=== PATIENT | female | born 1995 | race Two or more races ===

== ENCOUNTER 2021-03-28 14:37 | Inpatient (IN) | payer OTHER ==
[~2021-03-28] VITALS: Ht 157.5 cm; Wt 48.5 kg
[2021-03-28] MEDS ORDERED: diphenhydrAMINE 50 MG/1 ML VIAL IV ONE (14:45)
[2021-03-28] MEDS ORDERED: LORAZEPAM 2 MG/1 ML VIAL IV ONE ×3 (14:45→16:15)
[2021-03-28] MEDS ORDERED: IV NORMAL SALINE 1000 ML BAG IV ONE (14:45)
[2021-03-28] MEDS ORDERED: diphenhydrAMINE 50 MG/1 ML VIAL ONE (14:48)
[2021-03-28] MEDS ORDERED: LORAZEPAM 2 MG/1 ML VIAL ONE ×3 (14:48→18:46)
[2021-03-28 15:09] LABS: HEMATOCRIT 39.9 % (31.2-41.9); MEAN CORPUSCULAR HEMOGLOBIN 32.9 uug (24.7-32.8); MEAN CORPUSCULAR VOLUME 96.6 fL (75.5-95.3); PLATELET COUNT (AUTO) 272 K/uL (179-408)
[2021-03-28 15:20] LABS: ACETAMINOPHEN < 2.0 ug/mL (10-30)
[2021-03-28 15:21] LABS: ETHANOL < 3 MG/DL (0-0)
[2021-03-28 15:29] LABS: THYROID STIMULATING HORMONE 3.206 mIU/mL (0.358-3.740)
[2021-03-28 16:17] LABS: *BILIRUBIN,URIN NEGATIVE (NEGATIVE); *COLOR,URINE YELLOW (YELLOW); *KETONES,URINE 2+ (NEGATIVE); *UROBILINOGEN,URINE 0.2 E.U./dl (NORMAL); LEUKOCYTE ESTERASE ,URINE NEGATIVE (NEGATIVE); NITRITE, URINE NEGATIVE (NEGATIVE); UGLUCOSE NEGATIVE (NEGATIVE)
[2021-03-28] MEDS ORDERED: FLUO20CA42 PO (16:18)
[2021-03-28] MEDS ORDERED: TRAZ-182 PO (16:18)
[2021-03-28] MEDS ORDERED: BUPR200T3 PO (16:18)
[2021-03-28 16:21] LABS: *BLOOD, URINE TRACE (NEGATIVE)
[2021-03-28 16:25] LABS: *CLARITY,URINE HAZY (CLEAR); BACTERIA,URINE FEW /HPF (NONE SEEN); RBC,URINE 0-3 /HPF (0-3); SQUAMOUS EPITHELIAL CELL,UR MODERATE /HPF (NONE SEEN); URINE AMORPHOUS URATE FEW /HPF
[2021-03-28 16:30] LABS: *AMPHETAMINE, URINE POSITIVE (NEGATIVE); *CANNABINOID, URINE NEGATIVE (NEGATIVE); *COCCAINE, URINE NEGATIVE (NEGATIVE); *OPIATE, URINE NEGATIVE (NEGATIVE); *PHENCYCLIDINE SCREEN,URINE NEGATIVE (NEGATIVE)
[2021-03-28 16:44] LABS: *URINE HCG, QUAL NEGATIVE (NEGATIVE)
[2021-03-28 17:02] LABS: CREATININE 1.2 mg/dL (0.6-1.3); POTASSIUM 3.3 mmol/L (3.5-5.1)
[2021-03-28 17:08] LABS: BILIRUBIN,TOTAL 0.7 mg/dL (0.2-1.0); MAGNESIUM 2.4 mg/dL (1.8-2.4); TOTAL PROTEIN, SERUM 7.5 g/dL (6.4-8.2)
[2021-03-28] MEDS ORDERED: ONDANSETRON 4 MG/2 ML VIAL IV PRN (17:30)
[2021-03-28] MEDS ORDERED: ACETAMINOPHEN 325 MG TABLET PO PRN (17:30)
[2021-03-28] MEDS ORDERED: MAGNESIUM HYDROXIDE 30 ML LIQUID UDC PO PRN (17:30)
[2021-03-28] MEDS ORDERED: Z GUARD REMEDY PASTE 57 GM TUBE TOP PRN (17:30)
[2021-03-28] MEDS ORDERED: LORAZEPAM 2 MG/1 ML VIAL IV PRN (17:30)
[2021-03-28] MEDS: IV NS 1000 ML 1,000 ML IV SCH (17:30)
--- NOTE | 2021-03-28 18:08 | NUR ---
Patient is for ICU/CCU admission. Patient is not medically cleared per Dr Mclaughlin. Nursing estimator and drafter supervisor Mandy notified.
--- NOTE | 2021-03-28 18:47 | NUR ---
Patient is for CCU admission bed [address] Dumont accepted the patient. Patient will be assessed by psych molding utility worker when fully awake. Patient is sleeping at this time, moving all extremities, respiration:easy. 1:1 sitter maintained.
[2021-03-28] MEDS ORDERED: IV NS + KCL 40 MEQ 1000 ML BAG IV ONE (19:00)
--- NOTE | 2021-03-28 19:09 | NUR ---
SBAR to ALANA Larson. Patient's [email or web address].
--- NOTE | 2021-03-28 20:00 | NUR ---
Pt. admitted to CCU5 , under care of Dr. Dumont Belongs List completed
--- NOTE | 2021-03-28 20:30 | NUR ---
received report from er nurse erika
--- NOTE | 2021-03-28 20:45 | NUR ---
ns + 40 meq kcl ordered in ER
--- NOTE | 2021-03-28 20:45 | NUR ---
received patient lethargic , able to respond but confused , parents at bedside , on room air , sr at 101 , bp of 104 /62 , parents at bedside
[2021-03-28 20:50] VITALS: BP 104/62
--- NOTE | 2021-03-28 21:32 | NUR ---
spoke to the poison control center , updates given
[2021-03-28 22:00] VITALS: BP 92/58
[2021-03-28 23:00] VITALS: BP 107/64
[2021-03-29] VITALS (12 sets, daily range): BP systolic 93–118; BP diastolic 46–74
--- NOTE | 2021-03-29 00:05 | NUR ---
lawn service supervisor aware of dialysis order and dialysis nurse notified left a message
[2021-03-29] MEDS: IV NS 1000 ML 1,000 ML IV SCH ×3 (01:41→17:49)
--- NOTE | 2021-03-29 03:53 | NUR ---
OFFERED FLUID AND EUGENE , REFUSED , OFFERED THE BED MOTT
[2021-03-29 05:07] LABS: HEMATOCRIT 37.6 % (31.2-41.9); MEAN CORPUSCULAR HEMOGLOBIN 33.2 uug (24.7-32.8); MEAN CORPUSCULAR VOLUME 96.5 fL (75.5-95.3); PLATELET COUNT (AUTO) 189 K/uL (179-408)
[2021-03-29 05:25] LABS: PHOSPHOROUS 3.3 mg/dL (2.5-4.9); POTASSIUM 3.3 mmol/L (3.5-5.1)
--- NOTE | 2021-03-29 06:00 | NUR ---
patient is awake , oriented , able to follow command , on room air , iv ns running at 125 ml . hr , no seizure , no fever, continent , denies distress at this time
--- NOTE | 2021-03-29 07:10 | NUR ---
Received report from Soila Rodriguez patient received on bedside commode 1:1 sitter at bedside. Patient AAOX4. vitals stable hr of 81, sinus rhythm, 100/63, no tachypnea or sob. IV line patent and infusing with Ns. 125cc/hr.
--- NOTE | 2021-03-29 08:20 | NUR ---
Patient seen by attending Dr. Dumont, report given, orders to continue with care plan received.
--- NOTE | 2021-03-29 08:40 | NUR ---
A call to attending Dr. Dumont and orders to downgrade pt,. to telemetry if cardiac clearance given by Dr. Roberson
[2021-03-29] MEDS ORDERED: POTASSIUM CHLORIDE 20 MEQ TAB.PRT.SR PO ONE (08:45)
--- NOTE | 2021-03-29 09:20 | NUR ---
Patient seen by Psychiatrist Dr. Webb at the same time had a lengthy discussion with pt's mother on the phone. Orders to resent urine toxicity received and implemented.
--- NOTE | 2021-03-29 09:52 | NUR ---
Patient seen by nail feeder Dr. Roberson who verbalized cardiac clearance and that pt. should be down-graded to telemetry status.
[2021-03-29 10:15] LABS: *AMPHETAMINE, URINE NEGATIVE (NEGATIVE); *CANNABINOID, URINE NEGATIVE (NEGATIVE); *COCCAINE, URINE NEGATIVE (NEGATIVE); *OPIATE, URINE NEGATIVE (NEGATIVE); *PHENCYCLIDINE SCREEN,URINE NEGATIVE (NEGATIVE)
--- NOTE | 2021-03-29 11:25 | NUR ---
Telephone report given to Soila Stewart.
--- NOTE | 2021-03-29 11:26 | NUR ---
Pt. taken to 327 via wheel-chair accompanied by Soila Stewart and 1:1 sitter. Parents at bedside at this time. Pt. left AAOx4 vital stable, no c/of pain IV access patent. Pt's mother received a small earring and signed the pt;s belonging's list.
--- NOTE | 2021-03-29 12:00 | NUR ---
Patient transferred to [facility] unit room 327 from CCU. Patient was accompanied by her parents and has a 1:1 sitter for safety. Patient provided with orientation to unit and educated about unit rules and policies. Patient is alert, oriented, calm, and cooperative. Patient denies suicidal and homicidal ideation, denies hallucinations. Reports mild anxiety. Patient's skin is intact. Respirations are even and unlabored, no signs of respiratory distress noted. Patient denies complaints of pain, discomfort, nausea, headache, vomiting, or weakness. Patient instructed to inform nursing staff if any symptoms arise. Bed is in low and locked position. Patient's mother and father sitting at bedside. Patient was able to ambulate independently to the bathroom. Endorses low appetite but is able to tolerate food and fluids. Patient educated about use of call light.
--- NOTE | 2021-03-29 14:16 | NUR ---
This resume writer spoke with Saud from the Poison Control Center. This resume writer provided patient's status. It is recommended that patient continue with supportive care and to continue to monitor patient for adverse events.
--- NOTE | 2021-03-29 15:51 | NUR ---
Clinical Social Work Note Patient is a 25 year old female who is alert and oriented x4. Patients mood and affect appeared euthymic. Patient was able to have a meaningful conversation with SW and stated that she has little recollection of the events leading to her hospitalization. Patients parents participated in conversation. Patient denied any substance use. Patient denied any SI/HI. SW conducted the [place] Suicide Severity Rate Scale. Mother shared that the Dr. Webb stated that the overdose was medically induced which triggered patients manic episode. Patient stated she has been taking Wellbutrin and Prozac for anxiety. Per patient, she recalls she has not taken more than directed, but she has skipped once in a while. Patient stated she only remembers some parts and was able to stated that Saturday and Saturday she was feeling very paranoid. Per patient she was hallucinations that she was being watched and recorded. Mother stated that patient also become agitated in those two days and Saturday night she did not sleep. Mother stated that patient had two seizures before she came to the hospital. Patient stated she has an outside psychiatrist and therapist but she feels as if she needs to change. SW provided mental health services for patient upon discharge: [facility] at [address] [address] [facility] [address], [address]nd [place] [address] , [facility], [facility]. at [address] [address] [place] [address] . Patient will be evaluated by the crisis team.
--- NOTE | 2021-03-29 16:21 | NUR ---
Patient was provided with printed educational material regarding medications Wellbutrin XL and Prozac, about how to manage anxiety, and general information regarding Major Depression. Patient provided with education about side effects and complications of both medications and risks of skipping or doubling doses, since patient states at times she does not take the psychotropic medication as prescribed. Patient also provided with education about symptoms that need to be reported to a healthcare provider. Patient provided with education about coping mechanisms for anxiety, about how to better manage and communicate her feelings. Patient denies suicidal thoughts, denies impulsive thoughts, denies hallucinations and delusions, denies any history of substance abuse and alcohol abuse. Patient educated about importance of outpatient mental health treatment for management of symptoms of major depression and anxiety. Teaching provided with patient's mother and father in the room. Patient is able to verbalize understanding.
[2021-03-30] MEDS: IV NS 1000 ML 1,000 ML IV SCH (01:21)
[2021-03-30 04:00] VITALS: BP 105/53
--- NOTE | 2021-03-30 05:59 | NUR ---
Pt slept throughout the night. Sitter at bedside for safety. Denies SI. IV site is intact. Pt very calm and pleasant, able to make needs known. Will endorse to day shift.
[2021-03-30 06:33] LABS: HEMATOCRIT 39.8 % (31.2-41.9); MEAN CORPUSCULAR HEMOGLOBIN 33.1 uug (24.7-32.8); MEAN CORPUSCULAR VOLUME 97.5 fL (75.5-95.3); PLATELET COUNT (AUTO) 197 K/uL (179-408)
[2021-03-30 06:46] LABS: CREATININE 0.9 mg/dL (0.6-1.3); POTASSIUM 3.4 mmol/L (3.5-5.1)
[2021-03-30] MEDS ORDERED: POTASSIUM CHLORIDE 20 MEQ POWDER PACKET PO ONE (08:15)
[2021-03-30] MEDS ORDERED: POTASSIUM CHLORIDE 20 MEQ TAB.PRT.SR PO ONE ×2 (08:30)
[2021-03-30 10:28] VITALS: BP 105/60
--- NOTE | 2021-03-30 11:14 | NUR ---
dc orders received noted and carried out,dc instruction and education given to the pt and her family.dc heplock per md orders.pt left the facility via private car in stable condition
== END 2021-03-30 11:15 | disposition home or self-care (01) | DRG 917 ==
LOC: ER 14:37 → TRANSITION 19:11 → CCU 20:01 → TELE3 03-29 11:29 → MEDSURG3 03-30 08:28
PROVIDERS: ADMIT Internal Medicine; ATTEND Registered Nurse
DX: T43.291A Poisoning by other antidepressants, accidental (unintentional), initial encounter (principal); G92.8 Other toxic encephalopathy; R56.9 Unspecified convulsions; E87.6 Hypokalemia; F32.A Depression, unspecified; Z20.822 Contact with and (suspected) exposure to COVID-19; R00.0 Tachycardia, unspecified; Y92.009 Unspecified place in unspecified non-institutional (private) residence as the place of occurrence of the external cause; F29 Unspecified psychosis not due to a substance or known physiological condition
CPT/HCPCS: 36415; 70450; 71045; 83735; 84100; 84443; 84703; 85025; 93005; A4663; G0378; G0480; J1200; J2060; J7030